=== PATIENT | male | born 1965 | race Caucasian/White ===

== ENCOUNTER → 2016-07-25 | Day surgery (SDC) | payer OTHER | END | disposition home or self-care (01) | LOC: FAS 05-21 07:00 | DX: Z12.11 Encounter for screening for malignant neoplasm of colon (principal); F43.10 Post-traumatic stress disorder, unspecified; J45.909 Unspecified asthma, uncomplicated; Z79.899 Other long term (current) drug therapy | CPT/HCPCS: G0121; J2704 ==